=== PATIENT | male | born 1965 | race Caucasian/White ===

== ENCOUNTER 2017-01-16 22:23 | Inpatient (IN) | payer SELFPAY ==
[~2017-01-16] VITALS: Ht 193 cm; Wt 123.7 kg
[2017-01-16 22:58] LABS: MCH 28.1 PG (29.0-34.0); MCHC 32.4 G/DL (30.0-36.0); MEAN PLAT.VOLUME 9.7 uM^3 (9.0-12.4); PLATELET COUNT 225 K/uL (156-360); RBC DIS.WIDTH-CV 12.8 % (11.8-14.6); RED BLOOD COUNT 4.37 M/uL (4.00-5.50); WHITE BLOOD COUNT 6.7 K/uL (4.1-10.2)
[2017-01-16 23:09] LABS: CHLORIDE 108 mEq/L (99-109); POTASSIUM 3.5 mEq/L (3.7-5.4); SODIUM 144 mEq/L (136-147)
[2017-01-16 23:11] LABS: GLUCOSE 98 mg/dL (70-99)
[2017-01-16 23:12] LABS: ANION GAP 10 MEQ/L (2-14)
[2017-01-16 23:15] LABS: UREA NITROGEN (BUN) 9 mg/dL (9-23)
[2017-01-16 23:19] LABS: GFR ESTIMATE (CALCULATED) > 59 mL/min/; TROP-I INTERPRETATION NEGATIVE; TROPONIN-I 0.01 ng/mL (0.0-0.30)
[2017-01-17 00:11] LABS: INTER. NORMALIZED RATIO 1.2; PROTHROMBIN TIME 12.3 (9.2-11.2); PTT 25.3 (25-32); TOTAL BILIRUBIN 0.3 mg/dL (0.0-1.0)
[2017-01-17 00:12] LABS: ALKALINE PHOSPHATASE 132 IU/L (3-129)
[2017-01-17 00:14] LABS: DIRECT BILIRUBIN 0.2 mg/dL (0.0-0.3)
[2017-01-17 00:15] LABS: LIPASE 43 U/L (1.0-51.0)
[2017-01-17 05:40] LABS: HEMATOCRIT 33.9 % (38.0-50.0); MCH 28.1 PG (29.0-34.0); MCHC 32.4 G/DL (30.0-36.0); MCV 86.7 FL (86-99); PLATELET COUNT 213 K/uL (156-360); RBC DIS.WIDTH-CV 12.8 % (11.8-14.6); RBC DIS.WIDTH-SD 39.9 % (39-53); RED BLOOD COUNT 3.91 M/uL (4.00-5.50); WHITE BLOOD COUNT 6.7 K/uL (4.1-10.2)
[2017-01-17 06:01] LABS: TROP-I INTERPRETATION NEGATIVE; TROPONIN-I 0.02 ng/mL (0.0-0.30)
[2017-01-17 08:58] LABS: HDL CHOLESTEROL 26 MG/DL (Desirable>=40); LDL CHOLESTEROL 49 mg/dL (Desirable<100); NON-HDL CHOLESTEROL 68 mg/dL (Desirable<160); TOTAL CHOLESTEROL 94 mg/dL (Desirable<200); TRIGLYCERIDES 97 MG/DL (Normal: <150)
[2017-01-17 10:47] VITALS: BP 148/74
[2017-01-17 13:01] LABS: TROP-I INTERPRETATION NEGATIVE; TROPONIN-I < 0.01 ng/mL (0.0-0.30)
[2017-01-17 16:26] VITALS: BP 150/74
[2017-01-17 20:34] VITALS: BP 172/90
[2017-01-17 21:23] LABS: HEMATOCRIT 36.4 % (38.0-50.0); MCV 87.9 FL (86-99)
[2017-01-18 08:46] LABS: MCH 28.5 PG (29.0-34.0); MCHC 32.1 G/DL (30.0-36.0); MCV 88.8 FL (86-99); MEAN PLAT.VOLUME 10.3 uM^3 (9.0-12.4); PLATELET COUNT 202 K/uL (156-360); RBC DIS.WIDTH-CV 13.4 % (11.8-14.6); RBC DIS.WIDTH-SD 43.2 % (39-53); RED BLOOD COUNT 4.28 M/uL (4.00-5.50); WHITE BLOOD COUNT 7.7 K/uL (4.1-10.2)
[2017-01-18 09:11] LABS: ALKALINE PHOSPHATASE 111 IU/L (3-129); ANION GAP 6 MEQ/L (2-14); CHLORIDE 106 MEQ/L (99-109); GFR ESTIMATE (CALCULATED) > 59 mL/min/; GLUCOSE 79 mg/dL (70-99); POTASSIUM 3.3 MEQ/L (3.7-5.4); SAMPLE HEMOLYSIS CHECK 0; SAMPLE ICTERIC CHECK 0; SAMPLE LIPEMIA CHECK 0; SODIUM 140 MEQ/L (136-147); TOTAL BILIRUBIN 0.4 MG/DL (0.0-1.0); UREA NITROGEN (BUN) 8 mg/dL (9-23)
[2017-01-18 12:28] VITALS: BP 129/80
[2017-01-18 16:18] VITALS: BP 127/67
[2017-01-18 19:50] LABS: HEMATOCRIT 37.4 % (38.0-50.0); MCV 86.2 FL (86-99)
[2017-01-18 19:55] VITALS: BP 133/70
[2017-01-19 01:00] VITALS: BP 130/86
[2017-01-19 06:37] VITALS: BP 125/63
[2017-01-19 12:22] VITALS: BP 150/73
[2017-01-19 13:19] LABS: HEMATOCRIT 38.3 % (38.0-50.0); MCV 87.2 FL (86-99)
[2017-01-19 13:42] LABS: ANION GAP 9 MEQ/L (2-14); CHLORIDE 106 MEQ/L (99-109); GFR ESTIMATE (CALCULATED) > 59 mL/min/; GLUCOSE 87 mg/dL (70-99); POTASSIUM 3.9 MEQ/L (3.7-5.4); SAMPLE HEMOLYSIS CHECK 0; SAMPLE ICTERIC CHECK 0; SAMPLE LIPEMIA CHECK 0; SODIUM 140 MEQ/L (136-147); UREA NITROGEN (BUN) 10 mg/dL (9-23)
[2017-01-19 21:00] VITALS: BP 129/63
[2017-01-20 00:49] VITALS: BP 128/66
[2017-01-20 05:15] VITALS: BP 109/50
[2017-01-20 11:30] VITALS: BP 140/70
[2017-01-20] MEDS ORDERED: PROTONIX40 MG PO (14:21)
[2017-01-20] MEDS ORDERED: LOPRESSOR25 MG PO (14:21)
[2017-01-20] MEDS ORDERED: ATORVASTATIN CA40 MG PO (14:21)
[2017-01-20 17:15] VITALS: BP 142/68
[2017-01-20 23:30] VITALS: BP 144/65
[2017-01-21 04:03] VITALS: BP 124/59
[2017-01-21 09:10] VITALS: BP 146/66
== END 2017-01-21 12:56 | disposition home or self-care (01) | DRG 917 ==
LOC: EME 22:23 → EDOF 01-17 03:17 → 5SOUTH 01-17 03:17 → 4EAST 01-19 19:34
PROVIDERS: Hospitalist; Internal Medicine Gastroenterology; Physician Assistant Medical
DX: T39.391A Poisoning by other nonsteroidal anti-inflammatory drugs [NSAID], accidental (unintentional), initial encounter (principal); K25.4 Chronic or unspecified gastric ulcer with hemorrhage; I11.0 Hypertensive heart disease with heart failure; I50.32 Chronic diastolic (congestive) heart failure; R07.89 Other chest pain; R60.0 Localized edema; K21.9 Gastro-esophageal reflux disease without esophagitis; I25.10 Atherosclerotic heart disease of native coronary artery without angina pectoris; E78.2 Mixed hyperlipidemia; I35.1 Nonrheumatic aortic (valve) insufficiency; D64.9 Anemia, unspecified; M19.90 Unspecified osteoarthritis, unspecified site; Z72.0 Tobacco use
CPT/HCPCS: 71020; 78582; 80048; 80053; 80061; 80076; 83690; 83880; 84484; 85014; 85018; 85027; 85610; 85730; 93005; 93306; 93970; 99281; 99285; A9540; A9567; C1769; C1887; C1894; C9113; J1644; J2250; J2270; J2405; J3010; J3480; J7030; J7040